=== PATIENT | female | born 1995 | race Caucasian/White ===

== ENCOUNTER → 2018-10-07 | Outpatient (CLI) | payer OTHER ==
[2018-10-07 14:17] LABS: BASO % 0.2 % (0.0-1.0); EOS % 0.3 % (0.0-3.0); HEMATOCRIT 38.9 % (36.0-47.0); HEMOGLOBIN 12.8 g/dl (12.0-15.5); LYMPH # 2.3 10^3/uL (1.5-6.5); LYMPH % 18.8 % (24.0-44.0); MEAN CORPUSCULAR HEMOGLOBIN 28.4 pg (27.0-33.0); MEAN CORPUSCULAR HGB CONC 32.9 g/dl (32.0-36.5); MEAN CORPUSCULAR VOLUME 86.3 fl (80.0-96.0); MONO # 0.6 10^3/uL (0.0-0.8); NEUTROPHILS # 9.2 10^3/uL (1.8-7.7); NEUTROPHILS % 74.8 % (36.0-66.0); PLATELET COUNT, AUTOMATED 276 10^3/uL (150-450); RED BLOOD COUNT 4.51 10^6/uL (4.00-5.40); WHITE BLOOD COUNT 12.4 10^3/uL (4.0-10.0)
[2018-10-07 15:10] LABS: HEPATITIS C VIRUS ABY INDEX < 0.0 INDEX (<0.8); HIV 1&2 SCREEN CENTAUR NEGATIVE (NEGATIVE); RUBELLA IgG QUALITATIVE IMMUNE (IMMUNE)
[2018-10-07 17:00] LABS: CHLAMYDIA DNA AMPLIFICATION NEGATIVE (NEGATIVE); GC DNA AMPLIFICATION NEGATIVE (NEGATIVE)
== END ==
LOC: M SMT 11:07
PROVIDERS: ATTEND Advanced Practice Midwife
DX: Z34.81 Encounter for supervision of other normal pregnancy, first trimester (principal); Z36.89 Encounter for other specified antenatal screening

== ENCOUNTER 2018-10-18 13:04 | Emergency (ER) | payer OTHER ==
[~2018-10-18] VITALS: Ht 160 cm; Wt 90.9 kg
[2018-10-18] MEDS ORDERED: RANI-280 PO (13:09)
[2018-10-18] MEDS ORDERED: UNIS25TA3 PO (13:09)
[2018-10-18] MEDS ORDERED: PRENCHW PO (13:09)
[2018-10-18 14:12] LABS: BASO % 0.3 % (0.0-1.0); EOS % 0.2 % (0.0-3.0); HEMATOCRIT 37.9 % (36.0-47.0); HEMOGLOBIN 13.2 g/dl (12.0-15.5); LYMPH # 2.4 10^3/uL (1.5-6.5); MEAN CORPUSCULAR HEMOGLOBIN 28.8 pg (27.0-33.0); MEAN CORPUSCULAR HGB CONC 34.8 g/dl (32.0-36.5); MEAN CORPUSCULAR VOLUME 82.6 fl (80.0-96.0); MONO # 0.6 10^3/uL (0.0-0.8); NEUTROPHILS # 11.9 10^3/uL (1.8-7.7); NEUTROPHILS % 79.1 % (36.0-66.0); PLATELET COUNT, AUTOMATED 271 10^3/uL (150-450); RED BLOOD COUNT 4.59 10^6/uL (4.00-5.40)
[2018-10-18] MEDS ORDERED: ACETAMINOPHEN 325 MG TAB PO ONE (15:30)
[2018-10-18 16:05] LABS: CHLAMYDIA DNA AMPLIFICATION NEGATIVE (NEGATIVE); GC DNA AMPLIFICATION NEGATIVE (NEGATIVE)
--- NOTE | 2018-10-18 16:28 | REP ---
Clinical: Vaginal bleeding. Dating and viability. Technique: Transabdominal first trimester obstetrical ultrasound with color Doppler evaluation. Findings: Single live early intrauterine is appreciated. Gestational sac with yolk sac and pole identified. The [place]-rump length of 45 mm corresponds to 11 weeks 2 days gestational age with estimated date of delivery 05/07/2019 . heart rate equals 160 beats per minute. No gross abnormalities are identified. Impression: Single live early intrauterine at 11 weeks 2 days gestational age. Complete anatomical assessment should be performed and 19-20 weeks. Electronically Signed by Galen Moon MD 10/18/2018 04:19 P
[2018-10-18 17:50] VITALS: BP 131/66
== END 2018-10-18 17:56 | disposition home or self-care (01) ==
LOC: M ED 13:04
DX: O20.0 Threatened abortion (principal); Z88.0 Allergy status to penicillin; Z88.1 Allergy status to other antibiotic agents; Z3A.11 11 weeks gestation of pregnancy

== ENCOUNTER → 2018-12-16 | Outpatient (CLI) | payer OTHER ==
[~2018-12-16] MED LIST: PRENCHW PO; RANI-280 PO; UNIS25TA3 PO
--- NOTE | 2018-12-17 02:36 | REP ---
Clinical: Anatomical evaluation. Comparison: 10/18/2018 . Findings: Examination demonstrates a single live intrauterine in cephalic presentation. motion is identified by technologist. Placenta is noted anterior and grade grade zero without evidence for placenta previa or abruption. Amniotic fluid volume is normal. Cervix measures 3.5 cm in length and appears closed. No evidence for nuchal cord. Gestational age by LMP 19 weeks 3 days with WAGNER 05/09/2019 . Gestational age by current measurements 20 weeks 6 days with WAGNER 04/29/2019 . FHR equals 133 beats per minute. BPD 4.8 cm 20 weeks 3 days HC 18.3 cm 20 weeks 5 days AC 16.0 cm 21 weeks 1 day FL 3.5 cm 21 weeks 0 days HL 3.3 821 weeks 1 day HC/AC ratio 1.14 Estimated weight 391 grams (greater than 97 percentile based on LMP percentile). Anatomical assessment demonstrates normal structures including choroid plexus, cavum, diaphragm, stomach, cord insertion/three-vessel cord, bladder, and extremities. Impression: Single live intrauterine in cephalic presentation. Greater than expected growth based on age by LMP noted. Limited anatomical assessment may warrant reevaluation and follow-up. Electronically Signed by Galen Moon MD 12/17/2018 02:29 A
== END ==
LOC: M RAD 10:21
PROVIDERS: ATTEND Advanced Practice Midwife
DX: Z34.82 Encounter for supervision of other normal pregnancy, second trimester (principal); Z3A.20 20 weeks gestation of pregnancy

== ENCOUNTER → 2019-01-06 | Outpatient (CLI) | payer OTHER ==
--- NOTE | 2019-01-06 15:59 | REP ---
Clinical: Anatomical evaluation. Comparison: 12/16/2018 . Findings: Examination demonstrates a single live intrauterine in cephalic presentation. motion is identified by technologist. Placenta is noted anterior and grade there are grade 1 without evidence for placenta previa or abruption. Amniotic fluid volume is normal. Cervix measures 3.4 cm in length and appears closed. No evidence for nuchal cord. Gestational age by LMP 22 weeks 3 days with WAGNER 05/09/2019 . Gestational age by current measurements 23 weeks 1 day with WAGNER 05/04/1992 . FHR equals 129 beats per minute. Estimated weight 625 grams ( 91st percentile). Anatomical assessment demonstrates normal structures including cranium, choroid plexus, cavum, cerebellum/posterior fossa, lungs, ventricular outflow tracts, diaphragm, stomach, cord insertion/three-vessel cord, kidneys/bladder, and spine. Impression: Single live intrauterine in cephalic presentation. Limited evaluation of the facial features and four-chamber heart again noted. Remainder examination is normal. Electronically Signed by Galen Moon MD 01/06/2019 03:51 P
== END ==
LOC: M RAD 13:35
PROVIDERS: ATTEND Advanced Practice Midwife
DX: Z34.02 Encounter for supervision of normal first pregnancy, second trimester (principal); Z3A.23 23 weeks gestation of pregnancy

== ENCOUNTER → 2019-02-17 | Outpatient (CLI) | payer OTHER ==
[2019-02-17 18:50] LABS: ALT/SGPT 21 U/L (12-78); BILIRUBIN,TOTAL 0.3 MG/DL (0.2-1.0); CREATININE FOR GFR 0.77 MG/DL (0.55-1.30); GLOMERULAR FILTRATION RATE > 60.0 (>60); LDH LACTATE DEHYDROGENASE 142 U/L (84-246); URIC ACID 3.5 MG/DL (2.6-6.0)
== END ==
LOC: M SMT 14:05
PROVIDERS: ATTEND Specialist
DX: O13.3 Gestational [pregnancy-induced] hypertension without significant proteinuria, third trimester (principal)

== ENCOUNTER → 2019-02-17 | Outpatient (CLI) | payer OTHER ==
[2019-02-17 18:40] LABS: BASO % 0.3 % (0.0-1.0); EOS % 0.3 % (0.0-3.0); HEMATOCRIT 31.9 % (36.0-47.0); HEMOGLOBIN 10.3 g/dl (12.0-15.5); LYMPH # 2.1 10^3/uL (1.5-6.5); LYMPH % 15.1 % (24.0-44.0); MEAN CORPUSCULAR HEMOGLOBIN 28.6 pg (27.0-33.0); MEAN CORPUSCULAR HGB CONC 32.3 g/dl (32.0-36.5); MEAN CORPUSCULAR VOLUME 88.6 fl (80.0-96.0); MONO # 0.8 10^3/uL (0.0-0.8); MONO % 5.5 % (0.0-5.0); NEUTROPHILS # 10.6 10^3/uL (1.8-7.7); NEUTROPHILS % 78.1 % (36.0-66.0); PLATELET COUNT, AUTOMATED 237 10^3/uL (150-450); WHITE BLOOD COUNT 13.6 10^3/uL (4.0-10.0)
== END ==
LOC: M SMT 14:03
PROVIDERS: ATTEND Advanced Practice Midwife
DX: O13.3 Gestational [pregnancy-induced] hypertension without significant proteinuria, third trimester (principal)

== ENCOUNTER → 2019-04-07 | Outpatient (REF) | payer OTHER | LOC: M LAB REF 12:41 | PROVIDERS: ATTEND Specialist | DX: Z34.03 Encounter for supervision of normal first pregnancy, third trimester (principal); Z3A.00 Weeks of gestation of pregnancy not specified ==

== ENCOUNTER → 2019-04-28 | Outpatient (CLI) | payer OTHER ==
[~2019-04-28] VITALS: Ht 160 cm; Wt 102.3 kg
[~2019-04-28] MED LIST changes: +FAMO1TAB25 PO; +TUMS500C PO; +ZOFR4TAB16 PO
[2019-04-28 01:58] VITALS: BP 140/91
[2019-04-28 02:31] VITALS: BP 130/75
[2019-04-28 03:01] VITALS: BP 123/82
[2019-04-28 03:31] VITALS: BP 134/73
== END ==
LOC: M LDO 01:20
PROVIDERS: ATTEND Specialist
DX: O47.1 False labor at or after 37 completed weeks of gestation (principal); Z3A.38 38 weeks gestation of pregnancy
CPT/HCPCS: 59025; G0378; G0463

== ENCOUNTER 2019-05-02 19:29 | Inpatient (IN) | payer OTHER ==
[2019-05-02] VITALS (7 sets, daily range): BP systolic 137–160; BP diastolic 82–93
[~2019-05-02] VITALS: Ht 160 cm; Wt 104.6 kg
[2019-05-02 20:44] LABS: HEMATOCRIT 36.8 % (36.0-47.0); HEMOGLOBIN 12.4 g/dl (12.0-15.5); MEAN CORPUSCULAR HEMOGLOBIN 29.2 pg (27.0-33.0); MEAN CORPUSCULAR HGB CONC 33.7 g/dl (32.0-36.5); MEAN CORPUSCULAR VOLUME 86.8 fl (80.0-96.0); PLATELET COUNT, AUTOMATED 266 10^3/uL (150-450); RED BLOOD COUNT 4.24 10^6/uL (4.00-5.40); WHITE BLOOD COUNT 12.2 10^3/uL (4.0-10.0)
[2019-05-02] MEDS ORDERED: LR 1,000 ML IV SCH (20:58)
[2019-05-02] MEDS ORDERED: LACTATED RINGER'S 1000 ML IV STA (20:58)
[2019-05-02] MEDS ORDERED: OXYTOCIN DRIP 30 UNITS in APPROPRIATE DILUENT 1 EA IV SCH (21:00)
[2019-05-03] VITALS (28 sets, daily range): BP systolic 122–173; BP diastolic 66–110
[2019-05-03] MEDS ORDERED: FENTANYL 2MCG/ML ROPIVACAINE 0.2% IN 0.9% NACL 100ML IVBAG As Ordered ONE (00:18)
[2019-05-03 00:19] LABS: ALT/SGPT 14 U/L (12-78); BILIRUBIN,TOTAL 0.2 MG/DL (0.2-1.0); CREATININE FOR GFR 0.85 MG/DL (0.55-1.30); GLOMERULAR FILTRATION RATE > 60.0 (>60); LDH LACTATE DEHYDROGENASE 204 U/L (84-246)
[2019-05-03] MEDS ORDERED: REFRIGERATOR IV KEYS XX PRN (01:15)
[2019-05-03] MEDS ORDERED: EPIDURAL/PCA KEYS XX PRN (01:15)
[2019-05-03] MEDS ORDERED: ONDANSETRON 4MG/2ML VIAL (J2405) IV PRN ×2 (01:15→07:00)
[2019-05-03] MEDS ORDERED: diphenhydrAMINE INJ 50MG/ML VIAL (J1200) IV PRN (01:15)
[2019-05-03] MEDS ORDERED: LACTATED RINGER'S 1000 ML IV PRN (01:15)
[2019-05-03] MEDS ORDERED: EPIDURAL COMMENT XX SCH (01:15)
[2019-05-03] MEDS ORDERED: NALOXONE INJ 0.4 MG/1 ML VIAL (J2310) IV PRN (01:15)
[2019-05-03] MEDS ORDERED: ePHEDrine SULFATE 25 MG/5 ML(5MG/ML) SYRINGE IV PRN (01:15)
[2019-05-03] MEDS ORDERED: FENTANYL/ROPIVACAINE/NACL BAG 100 ML EPIDURAL SCH (01:15)
[2019-05-03] MEDS ORDERED: CALCIUM CARBONATE 500 MG CHEW U/D PO PRN ×2 (04:15→14:00)
[2019-05-03] MEDS ORDERED: LR 1,000 ML IV SCH (06:48)
[2019-05-03] MEDS ORDERED: OXYTOCIN DRIP 30 UNITS in APPROPRIATE DILUENT 1 EA IV SCH (06:48)
[2019-05-03] MEDS ORDERED: DOCUSATE SODIUM 100 MG CAP PO PRN (07:00)
[2019-05-03] MEDS ORDERED: MEASLES,MUMPS,RUBELLA VACCINE INJ (MMR-II) (90707) SC SCH (07:00)
[2019-05-03] MEDS ORDERED: DIBUCAINE 1% OINTMENT 30GM TOP PRN (07:00)
[2019-05-03] MEDS ORDERED: RHOGAM 300 MCG (1500 IU) INJ (J2790) IM SCH (07:00)
[2019-05-03] MEDS ORDERED: ACETAMINOPHEN 500 MG TAB PO PRN (07:00)
[2019-05-03] MEDS ORDERED: IBUPROFEN 600 MG TAB PO PRN (07:00)
[2019-05-03] MEDS ORDERED: ACETAMINOPHEN TAB 650MG DOSE (2X325MG) PO PRN (07:00)
[2019-05-03] MEDS ORDERED: PROMETHAZINE 25 MG TAB PO PRN (07:00)
[2019-05-03] MEDS: PRENATAL VITAMINS CHEWABLE TABLET PO SCH (14:08)
[2019-05-03] MEDS: IBUPROFEN 800 MG TAB PO PRN ×2 (14:09→22:46)
[2019-05-03] MEDS ORDERED: FAMOTIDINE 20 MG TAB PO SCH (21:00)
[2019-05-04 05:46] VITALS: BP 142/79
--- NOTE | 2019-05-04 06:56 | IPNPDOC ---
Text Note Date of Service The patient was seen on 05/04/19. NOTE Subjective: Patient reports she is doing better. States she is still struggling some with . She denies any preeclamptic signs or symptoms. Objective: VS: see below. A+O x3. Respiratory: regular rate with no use of accessory muscles. Abdomen: Fundus firm at umbilicus. Lochia is moderate and dark red. Lower extremities with generalized edema and no clonus. Skin is warm, dry and without rash or lesions. Assessment: Day 1 Plan: Pre eclamptic labs reordered to due continued elevated blood pressures. Continue with supportive nursing care and continued support. VS,Fishbone, I+O VS, Fishbone, I+O Vital Signs Date Time Temp Pulse Resp B/P (MAP) Pulse Ox O2 Delivery O2 Flow Rate FiO2 05/04/19 05:46 98.7 88 16 142/79 (100) I&O- Last 24 Hours up to 6 AM 05/04/19 06:00 Intake Total 2502 ml Output Total 300 ml Balance 2202 ml ARANZA LEPE CNM May 04, 2019 06:56
[2019-05-04 07:12] LABS: HEMATOCRIT 29.1 % (36.0-47.0); MEAN CORPUSCULAR HEMOGLOBIN 29.9 pg (27.0-33.0); MEAN CORPUSCULAR HGB CONC 33.3 g/dl (32.0-36.5); MEAN CORPUSCULAR VOLUME 89.8 fl (80.0-96.0); PLATELET COUNT, AUTOMATED 188 10^3/uL (150-450); RED BLOOD COUNT 3.24 10^6/uL (4.00-5.40); WHITE BLOOD COUNT 10.6 10^3/uL (4.0-10.0)
[2019-05-04 07:15] LABS: HEMOGLOBIN 9.7 g/dl (12.0-15.5)
[2019-05-04 07:31] LABS: ALT/SGPT 13 U/L (12-78); BILIRUBIN,TOTAL 0.2 MG/DL (0.2-1.0); CREATININE FOR GFR 0.99 MG/DL (0.55-1.30); GLOMERULAR FILTRATION RATE > 60.0 (>60); LDH LACTATE DEHYDROGENASE 177 U/L (84-246); URIC ACID 5.3 MG/DL (2.6-6.0)
[2019-05-04] MEDS: PRENATAL VITAMINS CHEWABLE TABLET PO SCH (08:37)
[2019-05-04] MEDS: IBUPROFEN 800 MG TAB PO PRN (08:38)
== END 2019-05-04 14:45 | disposition home or self-care (01) | DRG 807 ==
LOC: M LDI 19:29 → M PED 05-03 09:50
PROVIDERS: ADMIT Obstetrics & Gynecology; ATTEND Obstetrics & Gynecology
PROC: 10E0XZZ Delivery of Products of Conception, External Approach (ICD-10-PCS; principal; 2019-05-03)
PROC: 0KQM0ZZ Repair Perineum Muscle, Open Approach (ICD-10-PCS; 2019-05-03)
PROC: 3E033VJ Introduction of Other Hormone into Peripheral Vein, Percutaneous Approach (ICD-10-PCS; 2019-05-03)
DX: O70.1 Second degree perineal laceration during delivery (principal); Z37.0 Single live birth; Z3A.39 39 weeks gestation of pregnancy

== ENCOUNTER 2019-07-17 11:25 | Emergency (ER) | payer OTHER ==
[~2019-07-17] VITALS: Ht 160 cm; Wt 92.5 kg
[2019-07-17 11:25] VITALS: BP 128/60
[2019-07-17] MEDS ORDERED: NEXP1IMP SC (11:35)
== END 2019-07-17 11:55 | disposition home or self-care (01) ==
LOC: M ED 11:25
DX: M79.602 Pain in left arm (principal); Z88.0 Allergy status to penicillin; Z88.1 Allergy status to other antibiotic agents; Z79.3 Long term (current) use of hormonal contraceptives